=== PATIENT | female | born 1965 | race American Indian/Alaskan Native ===

== ENCOUNTER 2016-09-14 16:58 | Observation (INO) | payer SELFPAY ==
[2016-09-14 17:06] VITALS: TEMP 98.4
--- NOTE | 2016-09-14 17:23 | ED PDOC ---
Arrival/HPI - General Time Seen by Provider: 09/14/16 17:08 Historian: Patient - History of Present Illness Narrative History of Present Illness (Text): 09/14/16 17:43 Patient is a 50 yo female denies any known past medical history, presents to emergency department stating that at approximately 11-1130 this morning she suddenly developed right sided chest pain radiating to her right shoulder and right back, worse with movements and "pins and needles" sensation with movement. Pain worse with deep breaths. She denies abdominal pain. She denies shortness of breath. She states two weeks ago she had swelling to BOTH of her legs and it resolved. Denies smoking. 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 Denies prior history of deep vein thombosis or pulmonary embolism. Time/Duration: Prior to Arrival Symptom Onset: Sudden Past Medical History - Provider Review Nursing Documentation Reviewed: Yes Family/Social History - Physician Review Nursing Documentation Reviewed: Yes Family/Social History: Unknown Family HX Allergies/Home Meds Allergies/Adverse Reactions: Allergies No Known Allergies Allergy (Unverified 09/14/16 17:15) Review of Systems - Review of Systems Constitutional: Fatigue. absent: Fevers Eyes: absent: Vision Changes ENT: absent: Hearing Changes Respiratory: absent: SOB Cardiovascular: Chest Pain. absent: Calf Pain, [place] Gastrointestinal: absent: Abdominal Pain Genitourinary Female: absent: Dysuria, Frequency Musculoskeletal: Other (right shoulder pain worse with movements) Skin: absent: Rash Neurological: absent: Headache, Dizziness, Focal Weakness Endocrine: absent: Polyuria Hemo/Lymphatic: absent: Easy Bleeding Physical Exam - Physical Exam Narrative Physical Exam (Text): Head: Atraumatic. Normocephalic. Eyes: PERRL. EOMI. Conjunctivae are not pale. ENT: Mucous membranes are moist and intact. Oropharynx is clear and symmetric. Neck: Supple. Full ROM. No JVD. No lymphadenopathy. Cardiovascular: Regular rate. Regular rhythm. No murmurs, rubs, or gallops. Distal pulses are 2+ and symmetric. BP and pulse equal in both upper extremities. Pulmonary/Chest: No evidence of respiratory distress. Clear to auscultation bilaterally. No wheezing, rales or rhonchi. Pain on palpation of right anterior chest wall. Abdominal: Soft and non-distended. There is no tenderness. No rebound, guarding, or rigidity. No organomegaly. Good bowel sounds. No pulsatile masses. Back: No CVA tenderness. Palpable right upper thoracic pain on palpation. Extremities: No edema. No cyanosis. No clubbing. Full range of motion in all extremities. No calf tenderness. Pain on direct palpation of right shoulder worse with range of motion. Skin: Skin is warm and dry. No petechiae. No purpura. No vesicular rash. Neurological: Alert, awake, and oriented to person, place, time, and situation. Normal speech. Motor and sensory intact Psychiatric: Good eye contact. Normal interaction, affect, and behavior. 09/14/16 17:45 Vital Signs Reviewed: Yes Vital Signs Temp Pulse Resp BP Pulse Ox 09/14/16 18:03 61 18 113/71 100 09/14/16 17:05 98.4 F 73 18 94/57 L 97 Temperature: Afebrile Blood Pressure: Hypotensive Pulse: Regular Respiratory Rate: Normal Pain Distress: Moderate Mental Status: Positive for: Alert and Oriented X 3 Medical Decision Making ED Course and Treatment: 09/14/16 17:47 Patient has extremely reproducible pain on initial evaluation. Patient not hypoxic. No large pneumothorax noted on chest xray. There is significant family history of cad and [place] as per patient. Ddimer, card isos ordered. US Extremities Human Resources Services Specialist : Evaristo Blake MD Report Date : 09/14/2016 20:20:21 IMPRESSION: No sonographic evidence for deep venous thrombosis in the visualized segments of both lower extremities. BP improved on re-evaluation. Pain remains worse with movement, improved after Toradol. No pulse deficits noted. Ddimer and initial troponin unremarkable with negative doppler ultrasound. Given significant family cardiac risk factors, will admit to telemetry observation. Aspirin ordered, patient agreeable to plan. - Lab Interpretations Lab Results: 09/14/16 17:45 09/14/16 17:45 Lab Results 09/14/16 18:42: Urine Color Yellow, Urine Appearance Clear, Urine pH 6.0, Ur Specific [place] >= 1.030, Urine Protein Trace H, Urine Glucose (UA) Negative, Urine Ketones Negative, Urine Blood Negative, Urine Nitrate Negative, Urine Bilirubin Negative, Urine Urobilinogen 0.2, Ur Leukocyte Esterase Negative, Urine RBC 0 - 2, Urine WBC 1 - 3, Ur Epithelial Cells 6 - 8, Urine Bacteria Few 09/14/16 17:45: Sodium 137, Potassium 3.9, Chloride 105, Carbon Dioxide 23, Anion Gap 13, BUN 18, Creatinine 1.0, Est GFR ( Amer) > 60, Est GFR (Non- Af Amer) 59, Random Glucose 90, Calcium 9.4, Total Bilirubin 0.7, AST 26, ALT 23 , Alkaline Phosphatase 40, Lactate Dehydrogenase 415, Total Creatine Kinase 74, Troponin I < 0.01, NT-Pro-B Natriuret Pep 18.9, Total Protein 7.6, Albumin 4.1, Globulin 3.4, Albumin/Globulin Ratio 1.2 09/14/16 17:45: PT 10.9, INR 1.01, APTT 26.9, D-Dimer, Quantitative 0.45 09/14/16 17:45: WBC 5.5, RBC 4.67, Hgb 13.5, Hct 39.7, MCV 85.0, MCH 28.9, MCHC 34.0, RDW 13.3, Plt Count 230, MPV 11.5 H, Gran % 47.9 L, Lymph % (Auto) 35.4 H , [place] % (Auto) 8.4 H, Eos % (Auto) 7.8 H, Baso % (Auto) 0.5, Gran # 2.62, Lymph # 1.9, [place] # 0.5, Eos # 0.4, Baso # 0.03 - RAD Interpretation Narrative RAD Interpretations (Text): 09/14/16 22:51 cxr no pneumothorax or infiltrate Radiology Orders: 09/14/16 17:15 CHEST PORTABLE [RAD] Stat DUPLEX LOWER EXTRM VEIN BILAT [US] Stat File Conversion Operator: ED Physician - EKG Interpretation EKG Interpretation (Text): 09/14/16 22:50 EKG at 17:04 normal sinus rhythm rate of [address] elevations Interpreted by ED Physician: Yes Type: 12 lead EKG - Medication Orders Current Medication Orders: Aspirin (Aspirin Chewable) 81 mg PO DAILY CHRISSY Ketorolac Tromethamine (Toradol) 15 mg IVP Q6H PRN PRN Reason: Pain, moderate (4-7) Ondansetron HCl (Zofran Inj) 4 mg IVP Q4H PRN PRN Reason: Nausea/Vomiting Pantoprazole Sodium (Protonix Ec Tab) 40 mg PO 0630 CHRISSY Discontinued Medications Aspirin (Aspirin Chewable) 81 mg PO STAT STA Stop: 09/14/16 17:49 Last Admin: 09/14/16 18:28 Dose: 81 mg Ketorolac Tromethamine (Toradol) 30 mg IVP ONCE ONE Stop: 09/14/16 18:58 Last Admin: 09/14/16 19:06 Dose: 30 mg Nitroglycerin (Nitrostat Sl Tab) 0.3 mg SL Q5M PRN PRN Reason: chest pain Stop: 09/14/16 21:26 - Scribe Statement The provider has reviewed the documentation as recorded by the Geovani Carrillo Provider Scribe Attestation: All medical record entries made by the Geovani were at my direction and personally dictated by me. I have reviewed the chart and agree that the record accurately reflects my personal performance of the history, physical exam, medical decision making, and the department course for this patient. I have also personally directed, reviewed, and agree with the discharge instructions and disposition. Disposition/Present on Arrival - Present on Arrival Any Indicators Present on Arrival: No - Disposition Have Diagnosis and Disposition been Completed?: Yes Diagnosis: Chest pain Disposition: HOSPITALIZED Disposition Time: 19:30 Patient Plan: Admission, Observation, Telemetry Condition: FAIR
[2016-09-14 17:55] LABS: ADD MANUAL DIFF? NO
[2016-09-14 18:33] LABS: BASO # 0.03 K/mm3 (0.0-2.0); BASO % 0.5 % (0.0-3.0); EOS # 0.4 (0.0-0.7); EOS % 7.8 % (1.5-5.0); GRAN # 2.62 (1.4-6.5); GRAN % 47.9 % (50.0-68.0); HEMATOCRIT 39.7 % (36.0-48.0); LYMPH # 1.9 (1.2-3.4); LYMPH % 35.4 % (22.0-35.0); MEAN CORPUSCULAR HEMOGLOBIN 28.9 pg (25.0-35.0); MEAN PLATELET VOLUME 11.5 fl (7.0-11.0); MONO # 0.5 (0.1-0.6); MONO % 8.4 % (1.0-6.0); PLATELET COUNT 230 10^3/uL (120.0-450.0); RED CELL DISTRIBUTION WIDTH 13.3 % (11.5-14.5); WHITE BLOOD COUNT 5.5 10^3/ul (4.5-11.0)
[2016-09-14 18:38] LABS: INR 1.01 (0.93-1.08); PARTIAL THROMBOPLASTIN TIME 26.9 Seconds (23.7-30.8)
[2016-09-14 18:43] LABS: ALB/GLOB RATIO 1.2 (1.1-1.8); ALKALINE PHOSPHATASE 40 U/L (38-133); ALT/SGPT 23 U/L (7-56); AST/SGOT 26 U/L (15-39); BILIRUBIN,TOTAL 0.7 mg/dL (0.2-1.3); BLOOD UREA NITROGEN 18 mg/dL (7-21); CALCIUM 9.4 mg/dL (8.4-10.5); CARBON DIOXIDE 23 mmol/L (21-33); CHLORIDE 105 mmol/L (98-107); GFR AFRICAN-AMERICAN > 60; GLUCOSE,RANDOM 90 mg/dL (70-110); POTASSIUM 3.9 mmol/L (3.6-5.0); SODIUM 137 mmol/L (132-148); TOTAL PROTEIN 7.6 g/dL (5.8-8.3)
[2016-09-14 18:51] LABS: URINE BILIRUBIN NEGATIVE (NEGATIVE); URINE BLOOD NEGATIVE (NEGATIVE); URINE GLUCOSE (UA) NEGATIVE (NEGATIVE); URINE KETONE NEGATIVE (NEGATIVE); URINE LEUKOCYTE ESTERASE NEGATIVE Leu/uL (NEGATIVE); URINE PROTEIN TRACE mg/dL (<30 mg/dL); URINE UROBILINOGEN 0.2 E.U./dL (<1 E.U./dL)
[2016-09-14 18:52] LABS: URINE APPEARANCE CLEAR (CLEAR); URINE COLOR YELLOW (YELLOW)
[2016-09-14 18:53] LABS: D DIMER 0.45 mg/L FEU (0-0.50)
[2016-09-14 18:56] LABS: TROPONIN I < 0.01 ng/mL
[2016-09-14 19:03] LABS: URINE BACTERIA FEW (NEG); URINE RBC 0 - 2 /hpf (0-2)
--- NOTE | 2016-09-14 20:21 | US ---
HISTORY: Leg pain and swelling. Evaluate for DVT PHYSICIAN(S): Evaristo Quiroz MD. TECHNIQUE: Duplex sonography and color-flow Doppler with graded compression were used to evaluate the deep venous systems of both lower extremities. FINDINGS: The visualized deep venous systems of both lower extremities are sonographically normal and compressible. Normal wave forms and augmentation are seen. There is no sonographic evidence for deep venous thrombosis in the visualized segments of both lower extremities. IMPRESSION: No sonographic evidence for deep venous thrombosis in the visualized segments of both lower extremities.
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
--- NOTE | 2016-09-14 21:53 | CARD ---
APPROVED REPORT EKG Measurement Heart [id number] <Conclusion> Normal sinus rhythm Normal ECG
[2016-09-14 23:23] VITALS: RESP 22; BMI 30.9
[2016-09-15 00:28] VITALS: O2SAT 97
[2016-09-15 06:03] VITALS: BP 97/61
[2016-09-15] MEDS ORDERED: Pantoprazole 40 mg EC Tab PO SCH (06:30)
[2016-09-15 07:59] LABS: MEAN CELL VOLUME 84.8 fL (80.0-105.0); MEAN CORPUSCULAR HEMOGLOBIN 28.3 pg (25.0-35.0); MEAN CORPUSCULAR HGB CONC 33.4 g/dl (31.0-37.0); MEAN PLATELET VOLUME 11.4 fl (7.0-11.0); RED CELL DISTRIBUTION WIDTH 13.3 % (11.5-14.5); WHITE BLOOD COUNT 3.7 10^3/ul (4.5-11.0)
[2016-09-15 08:15] LABS: BLOOD UREA NITROGEN 17 mg/dL (7-21); CALCIUM 8.9 mg/dL (8.4-10.5); CARBON DIOXIDE 24 mmol/L (21-33); CHLORIDE 108 mmol/L (98-107); CHOLESTEROL 153 mg/dL (130-200); GFR AFRICAN-AMERICAN > 60; GLUCOSE,RANDOM 89 mg/dL (70-110); MAGNESIUM 1.9 mg/dL (1.7-2.2); PHOSPHOROUS 3.7 mg/dL (2.5-4.5); POTASSIUM 3.8 mmol/L (3.6-5.0); SODIUM 138 mmol/L (132-148)
[2016-09-15 08:26] LABS: TROPONIN I < 0.01 ng/mL
--- NOTE | 2016-09-15 09:20 | CARD ---
APPROVED REPORT EXAM: Two-dimensional and M-mode echocardiogram with Doppler and color Doppler. 2D DIMENSIONS IVSd0.9 (0.7-1.1cm)LVDd4.2 (3.9-5.9cm) PWd1.0 (0.7-1.1cm)LVDs1.9 (2.5-4.0cm) FS (%) 55.4 %LVEF (%)86.3 (>50%) M-Mode DIMENSIONS Left Atrium (MM)2.90 (2.5-4.0cm)Aortic Root2.80 (2.2-3.7cm) Aortic Cusp Exc.1.90 (1.5-2.0cm) Aortic Valve AoV Peak Gbxdnigj119.0cm/sAoV VTI25.1cmAO Peak GR.5mmHg LVOT Peak Cbqcnopx304.0cm/sLVOT VTI22.00cmAO Mean GR.3mmHg Mitral Valve MV E Atsvybjz19.0cm/sMV A Kcbivjts41.4cm/sE/A ratio1.8 TDI Lateral E' Peak V13.40cm/sMedial E' Peak V10.30cm/sE/Lateral E'6.0 E/Medial E'7.8 Tricuspid Valve TR Peak Stbnmipn455sl/sRAP [id number] Peak Gr.20mmHg [id number] LEFT VENTRICLE The left ventricle is normal size. There is normal left ventricular wall thickness. The left ventricular function is normal. The left ventricular ejection fraction is within the normal range. RIGHT VENTRICLE The right ventricle is normal size. The right ventricular systolic function is normal. ATRIA The left atrium size is normal. The right atrium size is normal. The interatrial septum is intact with no evidence for an atrial septal defect. AORTIC VALVE The aortic valve is normal in structure. No aortic regurgitation is present. There is no aortic valvular stenosis. MITRAL VALVE The mitral valve is normal in structure. There is no mitral valve regurgitation noted. TRICUSPID VALVE The tricuspid valve is normal in structure. There is mild tricuspid regurgitation. PULMONIC VALVE The pulmonary valve is normal in structure. GREAT VESSELS The aortic root is normal in size. The IVC is normal in size and collapses >50% with inspiration. PERICARDIAL EFFUSION There is no pleural effusion. There is no pericardial effusion. <Conclusion> Normal study.
--- NOTE | 2016-09-15 10:47 | CP.PCM.DIS ---
<Deepa Ribera - Last Filed: 09/15/16 11:09> Provider - Provider Date of Admission: 09/14/16 20:59 Attending physician: Holden Aguirre MD Primary care physician: Concetta Silverman MD Consults: Dr. Garay Time Spent in preparation of Discharge (in minutes): 35 Hospital Course - Lab Results Lab Results: Most Recent Lab Values WBC 3.7 10^3/ul (4.5-11.0) L D 09/15/16 07:49 RBC 4.48 10^6/uL (3.5-6.1) 09/15/16 07:49 Hgb 12.7 gm/dL (12.0-16.0) 09/15/16 07:49 Hct 38.0 % (36.0-48.0) 09/15/16 07:49 MCV 84.8 fL (80.0-105.0) 09/15/16 07:49 MCH 28.3 pg (25.0-35.0) 09/15/16 07:49 MCHC 33.4 g/dl (31.0-37.0) 09/15/16 07:49 RDW 13.3 % (11.5-14.5) 09/15/16 07:49 Plt Count 188 10^3/uL (120.0-450.0) 09/15/16 07:49 MPV 11.4 fl (7.0-11.0) H 09/15/16 07:49 Gran % 47.9 % (50.0-68.0) L 09/14/16 17:45 Lymph % (Auto) 35.4 % (22.0-35.0) H 09/14/16 17:45 [place] % (Auto) 8.4 % (1.0-6.0) H 09/14/16 17:45 Eos % (Auto) 7.8 % (1.5-5.0) H 09/14/16 17:45 Baso % (Auto) 0.5 % (0.0-3.0) 09/14/16 17:45 Gran # 2.62 (1.4-6.5) 09/14/16 17:45 Lymph # 1.9 (1.2-3.4) 09/14/16 17:45 [place] # 0.5 (0.1-0.6) 09/14/16 17:45 Eos # 0.4 (0.0-0.7) 09/14/16 17:45 Baso # 0.03 K/mm3 (0.0-2.0) 09/14/16 17:45 PT 10.9 Seconds (9.9-11.8) 09/14/16 17:45 INR 1.01 (0.93-1.08) 09/14/16 17:45 APTT 26.9 Seconds (23.7-30.8) 09/14/16 17:45 D-Dimer, Quantitative 0.45 mg/L FEU (0-0.50) 09/14/16 17:45 Sodium 138 mmol/L (132-148) 09/15/16 07:49 Potassium 3.8 mmol/L (3.6-5.0) 09/15/16 07:49 Chloride 108 mmol/L (98-107) H 09/15/16 07:49 Carbon Dioxide 24 mmol/L (21-33) 09/15/16 07:49 Anion Gap 10 (10-20) 09/15/16 07:49 BUN 17 mg/dL (7-21) 09/15/16 07:49 Creatinine 0.9 mg/dL (0.5-1.4) 09/15/16 07:49 Est GFR ( Amer) > 60 09/15/16 07:49 Est GFR (Non-Af Amer) > 60 09/15/16 07:49 Random Glucose 89 mg/dL (70-110) 09/15/16 07:49 Calcium 8.9 mg/dL (8.4-10.5) 09/15/16 07:49 Phosphorus 3.7 mg/dL (2.5-4.5) 09/15/16 07:49 Magnesium 1.9 mg/dL (1.7-2.2) 09/15/16 07:49 Total Bilirubin 0.7 mg/dL (0.2-1.3) 09/14/16 17:45 AST 26 U/L (15-39) 09/14/16 17:45 ALT 23 U/L (7-56) 09/14/16 17:45 Alkaline Phosphatase 40 U/L (38-133) 09/14/16 17:45 Lactate Dehydrogenase 415 U/L (333-699) 09/14/16 17:45 Total Creatine Kinase 74 U/L (35-230) 09/14/16 17:45 Troponin I < 0.01 ng/mL 09/15/16 07:49 NT-Pro-B Natriuret Pep 18.9 pg/mL (0-450) 09/14/16 17:45 Total Protein 7.6 g/dL (5.8-8.3) 09/14/16 17:45 Albumin 4.1 g/dL (3.0-4.8) 09/14/16 17:45 Globulin 3.4 gm/dL 09/14/16 17:45 Albumin/Globulin Ratio 1.2 (1.1-1.8) 09/14/16 17:45 Triglycerides 71 mg/dL (35-160) 09/15/16 07:49 Cholesterol 153 mg/dL (130-200) 09/15/16 07:49 LDL Cholesterol Direct 81 mg/dL (0-129) 09/15/16 07:49 HDL Cholesterol 46 mg/dL (29-60) 09/15/16 07:49 TSH 3rd Generation 0.44 mIU/mL (0.46-4.68) L 09/15/16 07:49 Urine Color Yellow (YELLOW) 09/14/16 18:42 Urine Appearance Clear (CLEAR) 09/14/16 18:42 Urine pH 6.0 (4.7-8.0) 09/14/16 18:42 Ur Specific [place] >= 1.030 (1.005-1.035) 09/14/16 18:42 Urine Protein Trace mg/dL (<30 mg/dL) H 09/14/16 18:42 Urine Glucose (UA) Negative mg/dL (NEGATIVE) 09/14/16 18:42 Urine Ketones Negative mg/dL (NEGATIVE) 09/14/16 18:42 Urine Blood Negative (NEGATIVE) 09/14/16 18:42 Urine Nitrate Negative (NEGATIVE) 09/14/16 18:42 Urine Bilirubin Negative (NEGATIVE) 09/14/16 18:42 Urine Urobilinogen 0.2 E.U./dL (<1 E.U./dL) 09/14/16 18:42 Ur Leukocyte Esterase Negative Farhana/uL (NEGATIVE) 09/14/16 18:42 Urine RBC 0 - 2 /hpf (0-2) 09/14/16 18:42 Urine WBC 1 - 3 /hpf (0-6) 09/14/16 18:42 Ur Epithelial Cells 6 - 8 /hpf (0-5) 09/14/16 18:42 Urine Bacteria Few (NEG) 09/14/16 18:42 - Hospital Course Hospital Course: 50 y/o F with no significant PMHx presents with CP x 1 day. Pt states she developed sudden right sided chest pain that radiates to her right shoulder. In ED, administered SL nitroglycerin and ASA. Initial troponin is less than 0.01, and EKG is NSR 76 w/o LBBB, nor ST elevations/depressions. Transferred to telemetry for observation for chest pain. On the floor, pt administered ASA and protonix and toradol for pain. Pain resolved. Repeat troponins also 0.01. ECHO (09/15/2016) was a normal study. Consulted cardiology. Pt d/c home in good condition with the following instructions: You are discharged home. Please follow up your primary care physician of choice within a week for thyroid function testing. TSH (.44) is low during this admission. Please follow-up with Dr Garay for outpatient stress test. Please start taking aspirin 81mg by mouth once daily. Please return to emergency department for worsening of symptoms. Discharge Exam - Head Exam Head Exam: ATRAUMATIC, NORMAL INSPECTION, NORMOCEPHALIC - Eye Exam Eye Exam: EOMI, Normal appearance Pupil Exam: NORMAL ACCOMODATION, PERRL - Respiratory Exam Respiratory Exam: NORMAL BREATHING PATTERN, UNREMARKABLE - Cardiovascular Exam Cardiovascular Exam: +S1, +S2. absent: Tachycardia - GI/Abdominal Exam GI & Abdominal Exam: Soft. absent: Tenderness - Exam External exam: absent: Ecchymosis, Erythema - Extremities Exam Extremities exam: normal capillary refill, pedal pulses present - Neurological Exam Neurological exam: Alert, Oriented x3 - Skin Skin Exam: Intact, Normal Color Discharge Plan - Discharge Medications Prescriptions: Aspirin [Adult Low Dose Aspirin EC] 81 mg PO DAILY #14 tablet. - Follow Up Plan Condition: GOOD Disposition: HOME/ ROUTINE Instructions: Chest Pain (DC), Chest Pain (GEN) Additional Instructions: You are discharged home. Please follow up your primary care physician of choice within a week for thyroid function testing. TSH (.44) is low during this admission. Please follow-up with Dr Garay for outpatient stress test. PLease start taking aspirin 81mg by mouth once daily. PLease return to emergency department for worsening of symptoms. NURSE INSTRUCTION Follow through with the above instructions outlined by Dr. Ribera. Take time to review the Discharge Packet as it has information that pertains to your condition. Enclosed is a [id number] prescription you are to present to your employer. If you should experience any difficult breathing, unusual bleeding, temperature over 100F, severe pain, change in mental status or any worsening of your condition, contact your primary care doctor or the nearest emergency room immediately. Please check the room for all your belongings before leaving. Referrals: Salvador Garay MD [Staff Provider] - Concetta Silverman MD [Primary Care Provider] - <Timothy FERGUSON,Holden - Last Filed: 09/15/16 13:19> Provider - Provider Date of Admission: 09/14/16 20:59 Attending physician: Holden Aguirre MD Primary care physician: Concetta Silverman MD Hospital Course - Lab Results Lab Results: Most Recent Lab Values WBC 3.7 10^3/ul (4.5-11.0) L D 09/15/16 07:49 RBC 4.48 10^6/uL (3.5-6.1) 09/15/16 07:49 Hgb 12.7 gm/dL (12.0-16.0) 09/15/16 07:49 Hct 38.0 % (36.0-48.0) 09/15/16 07:49 MCV 84.8 fL (80.0-105.0) 09/15/16 07:49 MCH 28.3 pg (25.0-35.0) 09/15/16 07:49 MCHC 33.4 g/dl (31.0-37.0) 09/15/16 07:49 RDW 13.3 % (11.5-14.5) 09/15/16 07:49 Plt Count 188 10^3/uL (120.0-450.0) 09/15/16 07:49 MPV 11.4 fl (7.0-11.0) H 09/15/16 07:49 Gran % 47.9 % (50.0-68.0) L 09/14/16 17:45 Lymph % (Auto) 35.4 % (22.0-35.0) H 09/14/16 17:45 [place] % (Auto) 8.4 % (1.0-6.0) H 09/14/16 17:45 Eos % (Auto) 7.8 % (1.5-5.0) H 09/14/16 17:45 Baso % (Auto) 0.5 % (0.0-3.0) 09/14/16 17:45 Gran # 2.62 (1.4-6.5) 09/14/16 17:45 Lymph # 1.9 (1.2-3.4) 09/14/16 17:45 [place] # 0.5 (0.1-0.6) 09/14/16 17:45 Eos # 0.4 (0.0-0.7) 09/14/16 17:45 Baso # 0.03 K/mm3 (0.0-2.0) 09/14/16 17:45 PT 10.9 Seconds (9.9-11.8) 09/14/16 17:45 INR 1.01 (0.93-1.08) 09/14/16 17:45 APTT 26.9 Seconds (23.7-30.8) 09/14/16 17:45 D-Dimer, Quantitative 0.45 mg/L FEU (0-0.50) 09/14/16 17:45 Sodium 138 mmol/L (132-148) 09/15/16 07:49 Potassium 3.8 mmol/L (3.6-5.0) 09/15/16 07:49 Chloride 108 mmol/L (98-107) H 09/15/16 07:49 Carbon Dioxide 24 mmol/L (21-33) 09/15/16 07:49 Anion Gap 10 (10-20) 09/15/16 07:49 BUN 17 mg/dL (7-21) 09/15/16 07:49 Creatinine 0.9 mg/dL (0.5-1.4) 09/15/16 07:49 Est GFR ( Amer) > 60 09/15/16 07:49 Est GFR (Non-Af Amer) > 60 09/15/16 07:49 Random Glucose 89 mg/dL (70-110) 09/15/16 07:49 Calcium 8.9 mg/dL (8.4-10.5) 09/15/16 07:49 Phosphorus 3.7 mg/dL (2.5-4.5) 09/15/16 07:49 Magnesium 1.9 mg/dL (1.7-2.2) 09/15/16 07:49 Total Bilirubin 0.7 mg/dL (0.2-1.3) 09/14/16 17:45 AST 26 U/L (15-39) 09/14/16 17:45 ALT 23 U/L (7-56) 09/14/16 17:45 Alkaline Phosphatase 40 U/L (38-133) 09/14/16 17:45 Lactate Dehydrogenase 415 U/L (333-699) 09/14/16 17:45 Total Creatine Kinase 74 U/L (35-230) 09/14/16 17:45 Troponin I < 0.01 ng/mL 09/15/16 07:49 NT-Pro-B Natriuret Pep 18.9 pg/mL (0-450) 09/14/16 17:45 Total Protein 7.6 g/dL (5.8-8.3) 09/14/16 17:45 Albumin 4.1 g/dL (3.0-4.8) 09/14/16 17:45 Globulin 3.4 gm/dL 09/14/16 17:45 Albumin/Globulin Ratio 1.2 (1.1-1.8) 09/14/16 17:45 Triglycerides 71 mg/dL (35-160) 09/15/16 07:49 Cholesterol 153 mg/dL (130-200) 09/15/16 07:49 LDL Cholesterol Direct 81 mg/dL (0-129) 09/15/16 07:49 HDL Cholesterol 46 mg/dL (29-60) 09/15/16 07:49 Thyroxine (T4) 7.0 ug/dL (5.5-11.0) 09/15/16 10:50 Total T3 1.03 ng/mL (0.97-1.69) 09/15/16 10:50 TSH 3rd Generation 0.44 mIU/mL (0.46-4.68) L 09/15/16 07:49 Urine Color Yellow (YELLOW) 09/14/16 18:42 Urine Appearance Clear (CLEAR) 09/14/16 18:42 Urine pH 6.0 (4.7-8.0) 09/14/16 18:42 Ur Specific [place] >= 1.030 (1.005-1.035) 09/14/16 18:42 Urine Protein Trace mg/dL (<30 mg/dL) H 09/14/16 18:42 Urine Glucose (UA) Negative mg/dL (NEGATIVE) 09/14/16 18:42 Urine Ketones Negative mg/dL (NEGATIVE) 09/14/16 18:42 Urine Blood Negative (NEGATIVE) 09/14/16 18:42 Urine Nitrate Negative (NEGATIVE) 09/14/16 18:42 Urine Bilirubin Negative (NEGATIVE) 09/14/16 18:42 Urine Urobilinogen 0.2 E.U./dL (<1 E.U./dL) 09/14/16 18:42 Ur Leukocyte Esterase Negative Farhana/uL (NEGATIVE) 09/14/16 18:42 Urine RBC 0 - 2 /hpf (0-2) 09/14/16 18:42 Urine WBC 1 - 3 /hpf (0-6) 09/14/16 18:42 Ur Epithelial Cells 6 - 8 /hpf (0-5) 09/14/16 18:42 Urine Bacteria Few (NEG) 09/14/16 18:42 Attending/Attestation - Attestation I have personally seen and examined this patient.: Yes I have fully participated in the care of the patient.: Yes I have reviewed all pertinent clinical information, including history, physical exam and plan: Yes Notes (Text): 09/15/16 13:14 Patient was seen and examined with medical billing manager .Agreed with resident assessment and plan. 49 F with no PMH was admitted with right sided musculoskletal chest pain, was having chest wall tenderness, EKG was negative for ischemic changes, serial troponins were normal.Echo showed normal left ventricular systolic function.Patient was evaluated by cardiology, no further inpatient work up is needed.Patient will be discharged home and will be discharged home and will follow up with PCP and cardiology. Management plan was discussed in detail with patient Education was provided.
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
[2016-09-15 11:30] LABS: T3 1.03 ng/mL (0.97-1.69)
[2016-09-15 12:12] VITALS: PULSE 69
--- NOTE | 2016-09-15 12:39 | RAD ---
HISTORY: chest pain COMPARISON: No prior. FINDINGS: LUNGS: No active pulmonary disease. PLEURA: No significant pleural effusion identified, no pneumothorax apparent. CARDIOVASCULAR: Normal. OSSEOUS STRUCTURES: No significant abnormalities. VISUALIZED UPPER ABDOMEN: Normal. OTHER FINDINGS: None. IMPRESSION: No active disease.
== END 2016-09-15 12:15 | disposition home or self-care (01) ==
LOC: ED 16:58 → ERH 20:59 → 2RNO 22:05
PROVIDERS: ADMIT Internal Medicine; ATTEND Internal Medicine
DX: R07.89 Other chest pain (principal); Z82.49 Family history of ischemic heart disease and other diseases of the circulatory system
CPT/HCPCS: 36415; 71010; 80048; 80053; 80061; 81001; 82550; 82948; 83615; 83735; 83880; 84100; 84436; 84443; 84480; 84484; 85025; 85027; 85378; 85610; 85730; 93005; 93306; 93970; 96374; 99283; G0378; J1885

== ENCOUNTER 2018-04-25 20:42 | Emergency (ER) | payer SELFPAY ==
[2018-04-25 20:42] VITALS: BMI 30.9
[2018-04-25 20:54] VITALS: RESP 18
--- NOTE | 2018-04-25 21:11 | ED PDOC ---
Arrival/HPI - General Chief Complaint: Fever Time Seen by Provider: 04/25/18 20:55 Historian: Patient - History of Present Illness Narrative History of Present Illness (Text): 04/25/18 21:06 52 year old female, with no significant past medical history, presents to the emergency department with flu-like symptoms, for 1 week. Patient states she has had fever and cough, and informs sick contact with her , who has similar symptoms. Patient states she has had some associated nausea and vomiting during this week but no abdominal pain or headache. Patient informs not having had the flu shot, and not seeing a pmd regularly. Patient informs taking nyquil and muccinex at home. Patient denies any diarrhea, constipation, dysuria, vaginal discharge, ear pain, rash, or any other complaints. Time/Duration: 1 week Symptom Onset: Gradual Quality: Aching Past Medical History - Provider Review Nursing Documentation Reviewed: Yes - Infectious Disease Hx of Infectious Diseases: None - Reproductive Menopause: Yes (2010) - Cardiac Hx Cardiac Disorders: No Hx Angina: No Hx Cardiac Arrhythmia: No Hx Circulatory Problems: No Hx Congestive Heart Failure: No Hx Heart Murmur: No Hx Heart Transplant: No Hx Hypertension: No Hx Internal Defibrillator: No Hx Mitral Valve Prolapse: No Hx Pacemaker: No Hx Peripheral Edema: No Hx Peripheral Vascular Disease: No - Pulmonary Hx Respiratory Disorders: No Hx Asthma: No Hx Bronchitis: No Hx Chronic Obstructive Pulmonary Disease (COPD): No Hx Emphysema: No Hx Pneumonia: No Hx Respiratory Aspiration: No Hx Respiratory Tract Infection: No Hx Sleep Apnea: No Hx Tuberculosis: No - Neurological Hx Neurological Disorder: No Hx Alzheimer's Disease: No HX Cerebrovascular Accident: No Hx Dementia: No Hx Dizziness: No Hx Meningitis: No Hx Migraine: No Hx Parkinson's Disease: No Hx Seizures: No Hx Transient Ischemic Attacks (TIA): No - HEENT Hx HEENT Disorder: Yes (wears bifocals) Hx Blind: No Hx Cataracts: No Hx Deafness: No Hx Difficulty Chewing: No Hx Epistaxis: No Hx Glaucoma: No Hx Macular Degeneration: No - Renal Hx Renal Disorder: No Hx Dialysis: No Hx Kidney Stones: No Hx Neurogenic Bladder: No Hx Pyelonephritis: No Hx Renal Cancer: No Hx Renal Failure: No - Endocrine/Metabolic Hx Endocrine Disorders: No Hx Adrenal Cancer: No Hx Diabetes Insipidus: No Hx Diabetes Mellitus Type 1: No Hx Diabetes Mellitus Type 2: No Hx Hyperthyroidism: No Hx Hypothyroidism: No Hx Systemic Lupus Erythematosus: No - Hematological/Oncological Hx Blood Disorders: No Hx AIDS: No Hx Anemia: No Hx Cancer: No Hx Chemotherapy: No Hx Cirrhosis: No Hx Hemophilia: No Hx Hepatitis A: No Hx Hepatitis B: No Hx Hepatitis C: No Hx Metastasis: No Hx Shingles: No Hx Sickle Cell Disease: No Hx Unexplained Bleeding: No - Integumentary Hx Dermatological Disorder: No Hx Basal Cell Carcinoma: No Hx Eczema: No Hx Melanoma: No Hx Psoriasis: No Hx Squamous Cell Carcinoma: No - Musculoskeletal/Rheumatological Hx Musculoskeletal Disorders: Yes Hx Arthritis: Yes (knees) Hx Back Pain: No Hx Degenerative Joint Disease: No Hx Falls: No Hx Fractures: No Hx Gout: No Hx Herniated Disk: No Hx Myasthenia Gravis: No Hx Osteoarthritis: No Hx Osteomyelitis: No Hx Osteoporosis: No Hx Rhabdomyolysis: No Hx Spinal Stenosis: No Hx Unsteady Gait: No - Gastrointestinal Hx Gastrointestinal Disorders: No Hx Colostomy: No Hx Crohn's Disease: No Hx Diverticulitis: No Hx Gall Bladder Disease: No Hx Gastroesophageal Reflux: No Hx Gastrointestinal Ulcer: No Hx Ileostomy: No Hx Liver Failure: No Hx Pancreatitis: No HX Swallowing Problems: No - Genitourinary/Gynecological Hx Genitourinary Disorders: Yes (fibroids) Hx Hematuria: No Hx Incontinence: No Hx Prostate Problems: No Hx Sexually Transmitted Diseases: No Hx Urinary Tract Infection: No - Psychiatric Hx Psychophysiologic Disorder: No Hx Anxiety: No Hx Bipolar Disorder: No Hx Depression: No Hx Emotional Abuse: No Hx Hallucinations: No Hx Panic Disorder: No Hx Post Traumatic Stress Disorder: No Hx Psychosis: No Hx Physical Abuse: No Hx Schizophrenia: No Hx Sexual Abuse: No Hx Substance Use: No - Surgical History Hx Amputation: No Hx Appendectomy: No Hx Cardiac Catheterization: No Hx Cholecystectomy: No Hx Coronary Stent: No Hx Gastric Bypass Surgery: No Hx Hysterectomy: No Hx Inguinal Hernia Repair: No Hx Joint Replacement: No Hx Kidney Transplant: No Hx Liver Transplant: No Hx Mastectomy: No Hx Musculoskeletal Surgery: No Hx Open Heart Surgery: No Hx Orthopedic Surgery: No Hx Splenectomy: No Hx Valve Replacement: No - Anesthesia Hx Anesthesia: No Hx Anesthesia Reactions: No Hx Malignant Hyperthermia: No Family/Social History - Physician Review Nursing Documentation Reviewed: Yes Family/Social History: No Known Family HX Smoking Status: Never Smoked Hx Alcohol Use: Yes Hx Substance Use: No Allergies/Home Meds Allergies/Adverse Reactions: Allergies No Known Allergies Allergy (Unverified 04/25/18 20:53) Review of Systems - Physician Review All systems were reviewed & negative as marked: Yes - Review of Systems Constitutional: Fevers. absent: Fatigue, Weight Change Eyes: absent: Vision Changes, Photophobia ENT: absent: Hearing Changes, Other (ear pain) Respiratory: Cough Gastrointestinal: Nausea, Vomiting. absent: Constipation, Diarrhea Genitourinary Female: absent: Dysuria, Vaginal Discharge Skin: absent: Rash Physical Exam Vital Signs Reviewed: Yes Vital Signs Temp Pulse Resp BP Pulse Ox 04/25/18 20:49 100.7 F H 85 18 100/69 97 Temperature: Febrile Blood Pressure: Normal Pulse: Regular Respiratory Rate: Normal Appearance: Positive for: Well-Appearing, Non-Toxic, Comfortable Pain Distress: None Mental Status: Positive for: Alert and Oriented X 3 - Systems Exam Head: Present: Atraumatic, Normocephalic. No: Tenderness (No sinus pressure) Pupils: Present: PERRL Extroacular Muscles: Present: EOMI Conjunctiva: Present: Normal Ears: Present: Normal, NORMAL TM Mouth: Present: Moist Mucous Membranes Pharnyx: Present: Normal. No: ERYTHEMA, EXUDATE Nose (External): Present: Atraumatic. No: Abrasion Nose (Internal): Present: Normal Inspection, No Active Bleeding, Moist Neck: Present: Normal Range of Motion. No: Meningeal Signs, MIDLINE TENDERNESS Respiratory/Chest: Present: Clear to Auscultation, Good Air Exchange. No: Respiratory Distress, Accessory Muscle Use Cardiovascular: Present: Regular Rate and Rhythm, Normal S1, S2. No: Murmurs Abdomen: Present: Normal Bowel Sounds. No: Tenderness, Distention, Peritoneal Signs Back: Present: Normal Inspection. No: CVA Tenderness Upper Extremity: Present: Normal Inspection, Normal ROM, NORMAL PULSES, Neurovascularly Intact. No: Cyanosis, Edema, Tenderness, Swelling, Erythema Lower Extremity: Present: Normal Inspection, NORMAL PULSES, Normal ROM, Neurovascularly Intact. No: Edema, Cyanosis, Swelling, Erythema Neurological: Present: GCS=15, CN II-XII Intact, Speech Normal Skin: Present: Warm, Dry, Normal Color. No: Rashes Psychiatric: Present: Alert, Oriented x 3, Normal Insight, Normal Concentration Medical Decision Making ED Course and Treatment: 04/25/18 21:15 Impression: 52 year old female presents with flu-like symptoms. Likely flu. No meningeal signs. No urinary complaints. No abdominal pain or GI or complaints. Pending flu swab, imaging. Plan: -- EKG -- CMP, Troponin -- CBC -- Motrin -- Zofran -- Rapid Strep -- flu swab -- Reassess and disposition Prior Visits: Notes and results from previous visits were reviewed Progress Notes: 04/25/18 22:26 EKG Reviewed by me, shows: Normal sinus rhythm @ 80bpm No STEMI 04/25/18 22:58 labs, xray unremarkable no urinary complaints +FLU Pt in NAD, agreeable to plan to f/u w/ PMD and given return indications. given tamiflu, clear for d/c home. - Scribe Statement The provider has reviewed the documentation as recorded by the Scribe Evaristo Webb Provider Scribe Attestation: All medical record entries made by the Scribe were at my direction and p ersonally dictated by me. I have reviewed the chart and agree that the record accurately reflects my personal performance of the history, physical exam, medical decision making, and the department course for this patient. I have also personally directed, reviewed, and agree with the discharge instructions and disposition. Disposition/Present on Arrival - Present on Arrival Any Indicators Present on Arrival: No History of DVT/PE: No History of Uncontrolled Diabetes: No Urinary Catheter: No History of Decub. Ulcer: No History Surgical Site Infection Following: None - Disposition Have Diagnosis and Disposition been Completed?: Yes Diagnosis: Influenza Disposition: HOME/ ROUTINE Disposition Time: 22:57 Condition: GOOD Discharge Instructions (ExitCare): Flu, Adult (DC) Additional Instructions: CHRISTY WAYNE, thank you for letting us take care of you today. Your provider was Raghu Dotson and you were treated for FEVER. The emergency medical care you received today was directed at your acute symptoms. If you were prescribed any medication, please fill it and take as directed. It may take several days for your symptoms to resolve. Return to the Emergency Department if your symptoms worsen, do not improve, or if you have any other problems. Please contact your doctor or call one of the physicians/clinics you have been referred to that are listed on the Patient Visit Information form that is includ ed in your discharge packet. Bring any paperwork you were given at discharge with you along with any medications you are taking to your follow up visit. Our treatment cannot replace ongoing medical care by a primary care provider outside of the emergency department. Thank you for allowing the [facility] team to be part of your care today. If you had an X-Ray or CT scan: A Radiologist will review the ED reading if any change in treatment is needed we will contact you. If you had a blood, urine, or wound culture: It will take several days for the results, if any change in treatment is needed we will contact you. If you had an STI test: It will take 48 hours for the results. Please call after 1 week if you have not heard back. Prescriptions: Oseltamivir Phosphate [Tamiflu] 75 mg PO BID 5 Days #10 capsule Referrals: [facility], [Non-Staff] - Follow up with primary [facility] [Outside] - Follow up with primary [facility] [Outside] - Follow up with primary [facility] [Outside] - Follow up with primary Shahrzad Crane MD [Medical Doctor] - Follow up with primary Forms: [facility] (Eth[place]ian)
[2018-04-25 21:32] LABS: BASO # 0.01 K/mm3 (0.0-2.0); BASO % 0.3 % (0.0-3.0); EOS # 0.3 (0.0-0.7); EOS % 8.6 % (1.5-5.0); GRAN # 1.36 (1.4-6.5); GRAN % 40.4 % (50.0-68.0); HEMOGLOBIN 13.4 g/dL (12.0-16.0); LYMPH # 1.2 (1.2-3.4); LYMPH % 35.9 % (22.0-35.0); MEAN CELL VOLUME 84.9 fl (80.0-105.0); MEAN CORPUSCULAR HEMOGLOBIN 28.9 pg (25.0-35.0); MEAN PLATELET VOLUME 10.9 fl (7.0-11.0); MONO # 0.5 (0.1-0.6); MONO % 14.8 % (1.0-6.0); RBC 4.64 10^6/uL (3.5-6.1); RED CELL DISTRIBUTION WIDTH 14.2 % (11.5-14.5); WHITE BLOOD COUNT 3.4 10^3/uL (4.5-11.0)
[2018-04-25 21:33] LABS: ALB/GLOB RATIO 1.1 (1.1-1.8); ALT/SGPT 31 U/L (7-56); AST/SGOT 20 U/L (14-36); BLOOD UREA NITROGEN 10 mg/dL (7-21); CALCIUM 8.7 mg/dL (8.4-10.5); GFR NON-AFRICAN AMERICAN > 60
[2018-04-25 21:43] LABS: TROPONIN I < 0.01 ng/mL
[2018-04-25 23:04] VITALS: BP 101/51; PULSE 73; TEMP 98.1; O2SAT 99
--- NOTE | 2018-04-26 12:35 | RAD ---
Date of service: 04/25/2018 HISTORY: cough COMPARISON: Radiograph dated 09/14/2016. TECHNIQUE: Chest PA and lateral FINDINGS: LUNGS: No active pulmonary disease. PLEURA: No significant pleural effusion identified. No pneumothorax apparent. CARDIOVASCULAR: Aortic atherosclerotic calcifications. Cardiomediastinal silhouette within normal limits. OSSEOUS STRUCTURES: Unchanged. VISUALIZED UPPER ABDOMEN: Normal. OTHER FINDINGS: None. IMPRESSION: No active disease.
--- NOTE | 2018-04-26 23:02 | CARD ---
APPROVED REPORT Date of service: 04/25/2018 EKG Measurement Heart [id number] <Conclusion> Normal sinus rhythm Normal ECG
== END 2018-04-25 23:15 | disposition home or self-care (01) ==
LOC: ED 20:42
DX: J11.1 Influenza due to unidentified influenza virus with other respiratory manifestations (principal)

== ENCOUNTER 2018-05-26 20:51 | Emergency (ER) | payer SELFPAY ==
--- NOTE | 2018-05-26 21:50 | ED PDOC ---
Arrival/HPI - General Chief Complaint: Abnormal Skin Integrity Time Seen by Provider: 05/26/18 21:45 Historian: Patient - History of Present Illness Narrative History of Present Illness (Text): 05/26/18 21:49 Verna Gusman is a 52 year old female, with no significant past medical history, who presents to the Emergency department complaining of a rash. Patient states she has been experiencing a diffuse pruritic rash to her arms, chest, and back. Patient is unsure what may have triggered the reaction, and denies any changes in diet, lotions, detergents, or soaps. Patient denies any throat/facial swelling, chest pain, abdominal pain, back pain, nausea, vomiting, or any other complaints. Symptom Onset: Gradual Symptom Course: Unchanged Activities at Onset: Light Context: Home Past Medical History - Provider Review Nursing Documentation Reviewed: Yes - Infectious Disease Hx of Infectious Diseases: None - Reproductive Menopause: No - Cardiac Hx Cardiac Disorders: No Hx Angina: No Hx Cardiac Arrhythmia: No Hx Circulatory Problems: No Hx Congestive Heart Failure: No Hx Heart Murmur: No Hx Heart Transplant: No Hx Hypertension: No Hx Internal Defibrillator: No Hx Mitral Valve Prolapse: No Hx Pacemaker: No Hx Peripheral Edema: No Hx Peripheral Vascular Disease: No - Pulmonary Hx Respiratory Disorders: No Hx Asthma: No Hx Bronchitis: No Hx Chronic Obstructive Pulmonary Disease (COPD): No Hx Emphysema: No Hx Pneumonia: No Hx Respiratory Aspiration: No Hx Respiratory Tract Infection: No Hx Sleep Apnea: No Hx Tuberculosis: No - Neurological Hx Neurological Disorder: No Hx Alzheimer's Disease: No HX Cerebrovascular Accident: No Hx Dementia: No Hx Dizziness: No Hx Meningitis: No Hx Migraine: No Hx Parkinson's Disease: No Hx Seizures: No Hx Transient Ischemic Attacks (TIA): No - HEENT Hx HEENT Disorder: Yes (wears bifocals) Hx Blind: No Hx Cataracts: No Hx Deafness: No Hx Difficulty Chewing: No Hx Epistaxis: No Hx Glaucoma: No Hx Macular Degeneration: No - Renal Hx Renal Disorder: No Hx Dialysis: No Hx Kidney Stones: No Hx Neurogenic Bladder: No Hx Pyelonephritis: No Hx Renal Cancer: No Hx Renal Failure: No - Endocrine/Metabolic Hx Endocrine Disorders: No Hx Adrenal Cancer: No Hx Diabetes Insipidus: No Hx Diabetes Mellitus Type 1: No Hx Diabetes Mellitus Type 2: No Hx Hyperthyroidism: No Hx Hypothyroidism: No Hx Systemic Lupus Erythematosus: No - Hematological/Oncological Hx Blood Disorders: No Hx AIDS: No Hx Anemia: No Hx Cancer: No Hx Chemotherapy: No Hx Cirrhosis: No Hx Hemophilia: No Hx Hepatitis A: No Hx Hepatitis B: No Hx Hepatitis C: No Hx Metastasis: No Hx Shingles: No Hx Sickle Cell Disease: No Hx Unexplained Bleeding: No - Integumentary Hx Dermatological Disorder: No Hx Basal Cell Carcinoma: No Hx Eczema: No Hx Melanoma: No Hx Psoriasis: No Hx Squamous Cell Carcinoma: No - Musculoskeletal/Rheumatological Hx Musculoskeletal Disorders: Yes Hx Arthritis: Yes (knees) Hx Back Pain: No Hx Degenerative Joint Disease: No Hx Falls: No Hx Fractures: No Hx Gout: No Hx Herniated Disk: No Hx Myasthenia Gravis: No Hx Osteoarthritis: No Hx Osteomyelitis: No Hx Osteoporosis: No Hx Rhabdomyolysis: No Hx Spinal Stenosis: No Hx Unsteady Gait: No - Gastrointestinal Hx Gastrointestinal Disorders: No Hx Colostomy: No Hx Crohn's Disease: No Hx Diverticulitis: No Hx Gall Bladder Disease: No Hx Gastroesophageal Reflux: No Hx Gastrointestinal Ulcer: No Hx Ileostomy: No Hx Liver Failure: No Hx Pancreatitis: No HX Swallowing Problems: No - Genitourinary/Gynecological Hx Genitourinary Disorders: Yes (fibroids) Hx Hematuria: No Hx Incontinence: No Hx Prostate Problems: No Hx Sexually Transmitted Diseases: No Hx Urinary Tract Infection: No - Psychiatric Hx Psychophysiologic Disorder: No Hx Anxiety: No Hx Bipolar Disorder: No Hx Depression: No Hx Emotional Abuse: No Hx Hallucinations: No Hx Panic Disorder: No Hx Post Traumatic Stress Disorder: No Hx Psychosis: No Hx Physical Abuse: No Hx Schizophrenia: No Hx Sexual Abuse: No Hx Substance Use: No - Surgical History Hx Amputation: No Hx Appendectomy: No Hx Cardiac Catheterization: No Hx Cholecystectomy: No Hx Coronary Stent: No Hx Gastric Bypass Surgery: No Hx Hysterectomy: No Hx Inguinal Hernia Repair: No Hx Joint Replacement: No Hx Kidney Transplant: No Hx Liver Transplant: No Hx Mastectomy: No Hx Musculoskeletal Surgery: No Hx Open Heart Surgery: No Hx Orthopedic Surgery: No Hx Splenectomy: No Hx Valve Replacement: No - Anesthesia Hx Anesthesia: No Hx Anesthesia Reactions: No Hx Malignant Hyperthermia: No Family/Social History - Physician Review Nursing Documentation Reviewed: Yes Family/Social History: Unknown Family HX Smoking Status: Never Smoked Hx Alcohol Use: Yes Hx Substance Use: No Allergies/Home Meds Allergies/Adverse Reactions: Allergies No Known Allergies Allergy (Unverified 04/25/18 20:53) Review of Systems - Physician Review All systems were reviewed & negative as marked: Yes - Review of Systems Constitutional: Normal. absent: Fevers Eyes: Normal ENT: Normal Respiratory: Normal. absent: SOB, Cough Cardiovascular: Normal. absent: Chest Pain Gastrointestinal: Normal. absent: Abdominal Pain, Diarrhea, Nausea, Vomiting Genitourinary Female: Normal. absent: Dysuria, Frequency, Hematuria, Urine Output Changes Musculoskeletal: Normal. absent: Back Pain, Neck Pain Skin: Rash, Pruritis Neurological: Normal Endocrine: Normal Hemo/Lymphatic: Normal Psychiatric: Normal Physical Exam Vital Signs Reviewed: Yes Vital Signs Temp Pulse Resp BP Pulse Ox 05/26/18 21:26 98.8 F 76 18 106/71 99 Temperature: Afebrile Blood Pressure: Normal Pulse: Regular Respiratory Rate: Normal Appearance: Positive for: Well-Appearing, Non-Toxic, Comfortable Pain Distress: None Mental Status: Positive for: Alert and Oriented X 3 - Systems Exam Head: Present: Atraumatic, Normocephalic Pupils: Present: PERRL Extroacular Muscles: Present: EOMI Conjunctiva: Present: Normal Mouth: Present: Moist Mucous Membranes Neck: Present: Normal Range of Motion Respiratory/Chest: Present: Clear to Auscultation, Good Air Exchange. No: Respiratory Distress, Accessory Muscle Use Cardiovascular: Present: Regular Rate and Rhythm, Normal S1, S2. No: Murmurs Abdomen: No: Tenderness, Distention, Peritoneal Signs Back: Present: Normal Inspection Upper Extremity: Present: Normal Inspection. No: Cyanosis, Edema Lower Extremity: Present: Normal Inspection. No: Edema Neurological: Present: GCS=15, CN II-XII Intact, Speech Normal Skin: Present: Warm, Dry, Normal Color. No: Rashes Psychiatric: Present: Alert, Oriented x 3, Normal Insight, Normal Concentration Medical Decision Making ED Course and Treatment: 05/26/18 21:49 Impression: 52 year old female complaining of a pruritic rash. Plan: -- Benadryl -- Prednisone -- Reassess and disposition Progress Notes: - Scribe Statement The provider has reviewed the documentation as recorded by the Geovani Narvaez Provider Scribe Attestation: All medical record entries made by the Scribe were at my direction and personally dictated by me. I have reviewed the chart and agree that the record accurately reflects my personal performance of the history, physical exam, medical decision making, and the department course for this patient. I have also personally directed, reviewed, and agree with the discharge instructions and disposition. Disposition/Present on Arrival - Present on Arrival Any Indicators Present on Arrival: No History of DVT/PE: No History of Uncontrolled Diabetes: No Urinary Catheter: No History of Decub. Ulcer: No History Surgical Site Infection Following: None - Disposition Have Diagnosis and Disposition been Completed?: Yes Diagnosis: Allergic reaction, Urticaria Disposition: HOME/ ROUTINE Disposition Time: 21:58 Patient Plan: Discharge Condition: GOOD Additional Instructions: Take meds as prescribed/follow up with your doctor Prescriptions: DiphenhydrAMINE [Benadryl] 50 mg PO Q6 PRN #24 cap PRN Reason: Itching / Pruritus predniSONE [Prednisone] 40 mg PO DAILY #10 tab Forms: [facility] (Italian)
[2018-05-26 21:53] VITALS: BP 106/71; PULSE 76; TEMP 98.8; BMI 32.5
[2018-05-26 23:25] VITALS: RESP 20; O2SAT 98
== END 2018-05-26 23:21 | disposition home or self-care (01) ==
LOC: ED 20:51
DX: T78.40XA Allergy, unspecified, initial encounter (principal); X58.XXXA Exposure to other specified factors, initial encounter; L50.9 Urticaria, unspecified